=== PATIENT | female | born 1990 | race Caucasian/White ===

== ENCOUNTER 2024-05-15 16:51 | Emergency (ER) | payer MEDICARE, SELFPAY ==
[2024-05-15 16:53] VITALS: BP 108/73
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
[2024-05-15] MEDS: CLEOCIN 52 MG IV (21:16)
[2024-05-15] MEDS: GENTAMICIN 0.1% CREAM 1 APPLIC TOPICAL (21:17)
[2024-05-15] MEDS: LEVAQUIN 500 MG PO (21:17)
[2024-05-15 21:45] VITALS: BP 114/74
== END 2024-05-15 21:48 | disposition home or self-care (01) ==
LOC: EMR 16:51
PROVIDERS: EMERGENCY PHYSICIAN Emergency Medicine; FAMILY PHYSICIAN Psychiatry & Neurology Neurology
DX: L08.9 Local infection of the skin and subcutaneous tissue, unspecified (principal); M62.838 Other muscle spasm; G82.20 Paraplegia, unspecified; F41.9 Anxiety disorder, unspecified; F32.A Depression, unspecified; Z98.1 Arthrodesis status
CPT/HCPCS: 64450; 99284; 10060; 73630